=== PATIENT | female | born 1990 | race Caucasian/White ===

== ENCOUNTER 2017-04-25 17:20 | Emergency (ER) | payer OTHER ==
--- NOTE | 2017-04-25 19:15 | UC ---
Asthma HPI - HPI Summary HPI Summary: 1 WEEK OF COUGH, CONGESTION, FEELS WHEEZY. HAS MILD NAUSEA. RAN OUT OF INHALERS A MONTH AGO. NO PCP. NO FEVER. HAS SOME MILD ST AND RIGHT EAR PAIN. - History of Current Complaint Chief Complaint: UCGeneralIllness Stated Complaint: COUGH,NAUSEA,LIGHT HEADED Time Seen by Provider: 04/25/17 19:07 Hx Obtained From: Patient Hx Last Menstrual Period: 04/06/17 Onset/Duration: Gradual Onset, Lasting Days, Still Present Timing: Constant Initial Severity: Moderate Current Severity: Moderate Pain Intensity: 0 Pain Scale Used: 0-10 Numeric Location/Character: Cough (Nonproductive) Aggravating Factor(s): Exertion Alleviating Factor(s): Rest - Allergy/Home Medications Allergies/Adverse Reactions: Allergies Allergy/AdvReac Type Severity Reaction Status Date / Time No Known Allergies Allergy Verified 04/25/17 18:20 PMH/Surg Hx/FS Hx/Imm Hx Respiratory History: Asthma Psychological History: Depression - Surgical History Surgical History: None - Family History Known Family History: Negative: Hypertension - Social History Alcohol Use: Occasionally Substance Use Type: None Smoking Status (MU): Never Smoked Tobacco - Immunization History Most Recent Influenza Vaccination: none Review of Systems Constitutional: Fatigue ENT: Sore Throat, Ear Ache, Nasal Discharge Respiratory: Cough Cardiovascular: Negative Gastrointestinal: Nausea All Other Systems Reviewed And Are Negative: Yes Physical Exam Triage Information Reviewed: Yes Appearance: Well-Appearing, No Pain Distress, Well-Nourished Vital Signs: Initial Vital Signs Temp 97.7 F 04/25/17 18:14 Pulse 71 04/25/17 18:14 Resp 15 04/25/17 18:14 BP 110/74 04/25/17 18:14 Pulse Ox 100 04/25/17 18:14 Vital Signs Reviewed: Yes Eyes: Positive: Conjunctiva Clear ENT: Positive: Hearing grossly normal, Pharynx normal, TMs normal Neck: Positive: Supple, Nontender, No Lymphadenopathy Respiratory Exam: Normal Cardiovascular Exam: Normal Abdomen Description: Positive: Soft Musculoskeletal: Positive: No Edema Neurological: Positive: Alert Psychological: Positive: Age Appropriate Behavior Skin: Negative: rashes Asthma Course/Dx - Differential Dx/Diagnosis Provider Diagnoses: ASTHMA EXACERBATION Discharge - Discharge Plan Condition: Stable Disposition: HOME Prescriptions: Albuterol HFA INHALER* [Ventolin HFA Inhaler*] 2 puff INH Q4H PRN #1 mdi PRN Reason: Shortness Of Breath Budesonide/Formote 160/4.5(NF) [Symbicort 160/4.5 (NF)] 2 puff INH BID #1 inhaler predniSONE TAB* [Deltasone TAB*] 50 mg PO DAILY #5 tab Patient Education Materials: Asthma (ED) Referrals: No Primary Care Phys,NOPCP [Primary Care Provider] - Additional Instructions: CALL THE NUMBER BELOW FOR ASSISTANCE IN ESTABLISHING WITH A PCP An additional resource available to assist in finding the appropriate physician for your health care needs is [facility] ([facility]). You may contact them by calling [phone]. GO TO THE ER WITHOUT FAIL IF YOU DEVELOP WORSENING SHORTNESS OF BREATH, CHEST PAIN, NAUSEA, SWEATS, DIZZINESS OR ANY OTHER CONCERNING SYMPTOMS.
== END 2017-04-25 19:28 | disposition home or self-care (01) ==
LOC: UCCORT 17:20
DX: J45.901 Unspecified asthma with (acute) exacerbation (principal); Z72.89 Other problems related to lifestyle
CPT/HCPCS: 99202; G0463